=== PATIENT | female | born 1995 | race Caucasian/White ===

== ENCOUNTER 2017-05-02 20:04 | Emergency (ER) | payer OTHER ==
--- NOTE | 2017-05-02 20:33 | RAD ---
PA AND LATERAL CHEST X-RAY 05/02/17 HISTORY: Chest wall pain and cough. FINDINGS: The cardiac silhouette and pulmonary vasculature are within normal limits. Lungs are clear. Osseous s tructures are intact. IMPRESSION: No acute cardiopulmonary process. POS: [id number]
== END 2017-05-02 20:53 | disposition home or self-care (01) ==
LOC: NAV ERS 20:04
DX: M94.0 Chondrocostal junction syndrome [Tietze] (principal); E28.2 Polycystic ovarian syndrome; E66.9 Obesity, unspecified; F41.9 Anxiety disorder, unspecified; F32.9 Major depressive disorder, single episode, unspecified
CPT/HCPCS: 71046; 93005